=== PATIENT | male | born 1965 | race Caucasian/White ===

== ENCOUNTER 2017-09-04 20:28 | Emergency (ER) | payer OTHER ==
[~2017-09-04] VITALS: Ht 172.7 cm; Wt 83.0 kg
[2017-09-04 20:38] VITALS: BP 140/67
[2017-09-04] MEDS ORDERED: IBUPROFEN 600 MG TABLET PO ONE ×2 (21:30→21:36)
--- NOTE | 2017-09-04 21:52 | NUR ---
SPOKE TO DELLA CHILD [facility] FOR PENDING CXR.
== END 2017-09-04 22:04 | disposition home or self-care (01) ==
LOC: ER 20:30
DX: S20.212A Contusion of left front wall of thorax, initial encounter (principal); S80.212A Abrasion, left knee, initial encounter; W01.0XXA Fall on same level from slipping, tripping and stumbling without subsequent striking against object, initial encounter; Y93.89 Activity, other specified; Y92.89 Other specified places as the place of occurrence of the external cause; Y99.8 Other external cause status
CPT/HCPCS: 71100-TC; A4606; Z7610

== ENCOUNTER 2022-08-21 21:54 | Emergency (ER) | payer BC, OTHER ==
[~2022-08-21] VITALS: Ht 172.7 cm; Wt 85.3 kg
[2022-08-21 22:04] VITALS: BP 138/61
--- NOTE | 2022-08-21 22:10 | NUR ---
c/o left shoulder pain x 2 days after lifting weights 10/10 ps
[2022-08-21] MEDS ORDERED: METHOCARBAMOL (500MG) 500 MG TABLET ONE ×2 (22:12→22:16)
[2022-08-21] MEDS ORDERED: LIDO30AD10 TP (22:17)
[2022-08-21] MEDS ORDERED: METH-647 PO (22:17)
[2022-08-21] MEDS ORDERED: METHOCARBAMOL (750MG) 750 MG TABLET PO SCH (22:30)
== END 2022-08-21 22:37 | disposition home or self-care (01) ==
LOC: ER 21:57
DX: M62.838 Other muscle spasm (principal)

== ENCOUNTER 2023-12-01 17:29 | Emergency (ER) | payer BC ==
[~2023-12-01] VITALS: Ht 170.2 cm; Wt 97.5 kg
[~2023-12-01 17:29] MED LIST: LIDO30AD10 TP; METH-647 PO
[2023-12-01] MEDS ORDERED: ONDANSETRON HCL/PF 4 MG/2 ML VIAL ONE (18:39)
[2023-12-01 18:43] LABS: BASOPHILS % (AUTO) 0.4 % (0.0-2.0); EOSINOPHILS % (AUTO) 0.6 % (0.0-6.0); HEMATOCRIT 43 % (39-51); HEMOGLOBIN 14.2 g/dL (13.5-17.5); LYMPHOCYTES # (AUTO) 0.8 K/uL (0.8-4.8); LYMPHOCYTES % (AUTO) 10.4 % (20.0-44.0); MEAN CORPUSCULAR HEMOGLOBIN 27 PG (26.0-33.0); MEAN CORPUSCULAR HGB CONC 33 g/dl (31.0-36.0); MEAN CORPUSCULAR VOLUME 83 fL (80-96); MONOCYTES # (AUTO) 0.5 K/uL (0.1-1.30); NEUTROPHILS # (AUTO) 6.6 K/uL (1.8-8.9); NEUTROPHILS % (AUTO) 82.6 % (43.0-81.0); PLATELET COUNT (AUTO) 231 K/uL (150-450); RED CELL DISTRIBUTION WIDTH 13.7 % (11.5-15.0); WHITE BLOOD COUNT (AUTO) 7.9 K/uL (4.3-11.0)
[2023-12-01] MEDS: IV NS 0.9% 1,000 ML BAG IV ONE (18:47)
[2023-12-01 18:53] LABS: CALCIUM, SERUM 9.2 mg/dL (8.5-10.1); POTASSIUM 3.7 mmol/L (3.5-5.1)
[2023-12-01] MEDS: ONDANSETRON HCL/PF 4 MG/2 ML VIAL IVP ONE (18:53)
[2023-12-01 19:05] LABS: BILIRUBIN,DIRECT 0.2 mg/dL (0.0-0.2); BILIRUBIN,TOTAL 0.8 mg/dL (0.2-1.0); TOTAL PROTEIN, SERUM 6.7 g/dL (6.4-8.2)
[2023-12-01] MEDS ORDERED: ONDA4TAB11 PO (19:59)
[2023-12-01 20:11] VITALS: BP 124/60; TEMP 98.3; O2SAT 99
== END 2023-12-01 20:12 | disposition home or self-care (01) ==
LOC: ER 17:30
DX: R11.2 Nausea with vomiting, unspecified (principal); Z60.2 Problems related to living alone
CPT/HCPCS: 99283; 96374; 96361; 85025; 80048; 83690; 80076; 36415; J2405; J7030